=== PATIENT | male | born 1985 | race African-American/Black ===

== ENCOUNTER 2017-01-15 18:51 | Emergency (ER) | payer OTHER ==
[2017-01-15 19:05] VITALS: BP 135/93; PULSE 66; RESP 16; O2SAT 99
--- NOTE | 2017-01-15 20:43 | EDPHY ---
H & P Time Seen by Provider: 01/15/17 20:20 HPI/ROS: CHIEF COMPLAINT: Needle stick HISTORY OF PRESENT ILLNESS: This is a 31-year-old male presenting to the emergency department reports having a needlestick at 1030 this morning. 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 Patient states the patient denied any medical history no knowledge of HIV or hepatitis, patient here for HIV and hepatitis panel. Denies any other complaints REVIEW OF SYSTEMS: Constitutional: No fever, no chills. Eyes: No discharge. ENT: No sore throat. Cardiovascular: No chest pain, no palpitations. Respiratory: No cough, no shortness of breath. Gastrointestinal: No abdominal pain, no vomiting. Musculoskeletal: No back pain. Skin: No rashes. Neurological: No headache. Smoking Status: Never smoked Physical Exam: General Appearance: Alert and no distress. Eyes: Pupils equal and round no injection. Respiratory: Nonlabored respiratory effort Cardiac: regular rate and rhythm Musculoskeletal: Full range of motion Extremities: full range of motion and are nontender. Skin: No rashes or lesions. Constitutional: Initial Vital Signs Heart Rate 66 01/15/17 19:01 Respiratory Rate 16 01/15/17 19:01 Blood Pressure 135/93 H 01/15/17 19:01 O2 Sat (%) 99 01/15/17 19:01 O2 Delivery Mode Room Air Allergies/Adverse Reactions: No Known Allergies Allergy (Unverified 01/15/17 19:05) Home Medications: Medication Instructions Recorded NK [No Known Home Meds] 01/15/17 Medical Decision Making ED Course/Re-evaluation: Discussed ED plan of care: HIV 1 and 2, hepatitis B and C. Discharge home---> stable, discussed discharge instructions with patient Differential Diagnosis: Other differential diagnosis considered but not limited to foreign body, Phalen , cellulitis - Data Points Laboratory Results: 01/15/17 20:47 Hepatitis A IgM Ab NEGATIVE (NEGATIVE) Hep Bs Antigen NEGATIVE (NEGATIVE) Hep B Core IgM Ab NEGATIVE (NEGATIVE) Hepatitis C Antibody NEGATIVE (NEGATIVE) HIV 1&2 Antibody NEGATIVE (NEGATIVE) Departure - Departure Disposition: Home, Routine, Self-Care Clinical Impression: Needle stick injury of finger Qualifiers: Encounter type: initial encounter Qualified Code(s): S61.239A - Puncture wound without foreign body of unspecified finger without damage to nail, initial encounter Condition: Good Instructions: Needle Stick Injuries (ED) Additional Instructions: 1. You can call here to [facility] and the lab for results 2. Monitor finger for any redness or swelling for infection Referrals: NONE *PRIMARY CARE P,. [Primary Care Provider] - As per Instructions [facility],. [Clinic] - As per Instructions
== END 2017-01-15 21:11 | disposition home or self-care (01) ==
DX: S61.239A Puncture wound without foreign body of unspecified finger without damage to nail, initial encounter (principal); W46.1XXA Contact with contaminated hypodermic needle, initial encounter
CPT/HCPCS: G0472